=== PATIENT | female | born 1965 | race Caucasian/White ===

== ENCOUNTER 2020-07-30 15:45 | Outpatient (CLI) | payer BC ==
[2015-01-17 07:56] VITALS: BMI 24.0
[~2020-07-30 15:45] MED LIST: PRAVASTATIN SOD10 MG PO
== END 2020-07-30 23:59 | disposition home or self-care (01) ==
LOC: D.MAMMO 15:45
PROVIDERS: ATTEND Obstetrics & Gynecology
DX: Z12.31 Encounter for screening mammogram for malignant neoplasm of breast (principal); Z01.419 Encounter for gynecological examination (general) (routine) without abnormal findings